=== PATIENT | female | born 1990 | race Caucasian/White ===

== ENCOUNTER 2018-01-09 08:19 | Inpatient (IN) | payer OTHER ==
[2018-01-09] MEDS ORDERED: Carboprost 250 MCG/ML AMP IM PRN (09:14)
[2018-01-09] MEDS ORDERED: Acetaminophen 500 MG TAB PO PRN (09:14)
[2018-01-09] MEDS ORDERED: Promethazine HCl 25 MG/ML VIAL IM PRN ×2 (09:14→13:00)
[2018-01-09] MEDS ORDERED: Misoprostol 200 MCG TAB PR PRN (09:14)
[2018-01-09] MEDS: Lactated Ringer's 1,000 ML IV SCH ×2 (09:14→12:28)
[2018-01-09] MEDS ORDERED: Meperidine HCl/PF 25 MG/ML VIAL IM/IV PRN (09:14)
[2018-01-09] MEDS ORDERED: LR / Pitocin 40 units/1000 ml 1,000 ML IV PRN (09:14)
[2018-01-09] MEDS ORDERED: Ondansetron HCl/PF 4 MG/2 ML Vial IVP PRN ×2 (09:14→13:00)
[2018-01-09] MEDS ORDERED: Methylergonovine 0.2 MG/ML VIAL IM PRN (09:14)
[2018-01-09] MEDS ORDERED: HYDROcodone/Acetaminophen 5/325 mg Tablet PO PRN (09:14)
[2018-01-09] MEDS ORDERED: Lidocaine 1% (PF) 30 ML VIAL SC PRN (09:14)
[2018-01-09] MEDS ORDERED: Ibuprofen 800 MG TAB PO PRN (09:14)
[2018-01-09] MEDS ORDERED: guaiFENesin/Dextromethorphan 10 ML UDCUP PO PRN (09:14)
[2018-01-09] MEDS ORDERED: LR 500 ML/Oxytocin 10 units 500 ML IV SCH (09:15)
[2018-01-09 09:54] VITALS: BMI 25.1
[2018-01-09 10:18] LABS: Hemoglobin 12.9 g/dL (12.0-16.0); Mean Corpuscular HGB CONC 34.3 g/dL (32.0-36.0); Mean Corpuscular Hemoglobin 31.7 pg (27.0-31.0); Mean Corpuscular Volume 92.4 fl (81.0-99.0); Mean Platelet Volume 7.3 fL (7.4-10.4); Platelet Count 143 thou/uL (130-400); RBC Distribution Width 12.3 % (11.5-14.5); Red Blood Cell (RBC) Count 4.08 mill/uL (4.20-5.40); White Blood Cell (WBC) Count 6.2 thou/uL (4.8-10.8)
[2018-01-09 10:54] LABS: Syphilis Antibody Nonreactive (Nonreactive); Syphilis Antibody Index 0.04 S/CO (<1.00 Non-Reactive)
[2018-01-09 10:55] LABS: HBSAg Index 0.15 S/CO (0-0.99); Hep B Surf Ag Non-Reactive S/CO (NonReactive)
[2018-01-09] MEDS ORDERED: Bupivacaine 0.5% 20 ML, Fentanyl 400 MCG in Sodium Chloride 0.9% 72 ML EPIDURAL SCH (12:00)
[2018-01-09] MEDS ORDERED: DISCONTINUE ALL PREVIOUS NARCOTICS FS SCH (12:00)
[2018-01-09] MEDS ORDERED: Communication Order-Pharmacy FS SCH (13:00)
[2018-01-09] MEDS ORDERED: Lactated Ringer's 500 ML IV PRN (13:00)
[2018-01-09] MEDS ORDERED: ePHEDrine/0.9% NaCl/PF SYRINGE 50 mg/10 ml SLOW IVP PRN (13:00)
[2018-01-09] MEDS ORDERED: diphenhydrAMINE 50 MG/ML VIAL IVP PRN (13:00)
[2018-01-09] MEDS ORDERED: Naloxone HCl 0.4 mg/ml Vial IVP PRN ×2 (13:00)
[2018-01-09] MEDS ORDERED: Eucerin (Mineral Oil/Petrolatum,White) 30 gm Jar TOP PRN (13:00)
[2018-01-09] MEDS ORDERED: Fentanyl 4mcg/Marcaine 0.1% Cassette 100 ML EPIDURAL SCH (13:00)
[2018-01-09] MEDS ORDERED: Acetaminophen 325 MG TAB PO PRN (13:00)
--- NOTE | 2018-01-09 14:22 | DN ---
DATE OF DELIVERY: 01/09/2018 PREOPERATIVE DIAGNOSIS: Term intrauterine . POSTOPERATIVE DIAGNOSES: Term intrauterine . PROCEDURE PERFORMED: Normal spontaneous vaginal delivery. SURGEON: Geri Pete M.D. ANESTHESIA: Epidural. ESTIMATED BLOOD LOSS: 250 mL. BRIEF DELIVERY SUMMARY: This is a 27-year-old G3, P1-0-1-1 at 41 and 4/7th weeks who presented for i nduction of labor secondary to post-dates . She began induction with Pitocin and underwent artificial rupture of membranes with clear fluid. She progressed quickly to complete and pushing. S he delivered a live male , head OA. Mouth and nares bulb suctioned at the perineum. There was no nuchal cord. Shoulders and body easily followed and the infant was placed on mother's abdomen. Infant's Apgars were 9 at 1 minute and 9 at 5 minutes. The umbilical cord was doubly clamped and cut and cord blood was collected and sent for analysis. Placenta delivered spontaneously and intact wit h a 3-vessel umbilical cord. Uterine fundus was firm following evacuation of the placenta. Total es timated blood loss was 250 mL. Cervix, vagina, and perineum were inspected for lacerations and there were none to be found. Mom and baby were left with the nurse in excellent condition attempting to b reast feed.
[2018-01-09] MEDS ORDERED: LR / Pitocin 40 units/1000 ml 1,000 ML IV SCH (17:24)
[2018-01-09] MEDS ORDERED: Lanolin Ointment 7 GM TUBE TOP PRN (17:24)
[2018-01-09] MEDS ORDERED: Benzocaine/Menthol 20-0.5% 60 ML CAN TOP PRN (17:24)
[2018-01-09] MEDS ORDERED: Bisacodyl 10 MG SUPP PR PRN (17:24)
[2018-01-09] MEDS ORDERED: Milk Of Magnesia 30 ML UDCUP PO PRN (17:24)
[2018-01-09] MEDS: Ferrous Sulfate 325 MG TAB PO SCH (18:22)
[2018-01-09] MEDS ORDERED: diphenhydrAMINE 25 MG CAP PO PRN (19:01)
[2018-01-09] MEDS: Guaifenesin DM 100-10/5 ML UDCUP PO PRN (20:40)
[2018-01-09] MEDS: Docusate Calcium (SURFAK) 240 MG CAP PO SCH (20:44)
[2018-01-09] MEDS: HYDROcodone/Acetaminophen 5/325 mg Tablet PO PRN (23:01)
[2018-01-10] MEDS: Ibuprofen 800 MG TAB PO PRN ×2 (04:33→14:26)
[2018-01-10] MEDS: Guaifenesin DM 100-10/5 ML UDCUP PO PRN ×4 (05:04→22:56)
[2018-01-10] MEDS: Ferrous Sulfate 325 MG TAB PO SCH ×2 (09:01→17:42)
[2018-01-10] MEDS: Docusate Calcium (SURFAK) 240 MG CAP PO SCH ×2 (09:02→21:29)
[2018-01-10] MEDS: Prenatal Vitamin 1 TAB PO SCH (09:02)
[2018-01-10] MEDS: HYDROcodone/Acetaminophen 5/325 mg Tablet PO PRN (13:04)
[2018-01-10] MEDS ORDERED: Bupivacaine/Epinephrine 0.25% 30 ML VIAL ONE (16:48)
[2018-01-11] MEDS: Guaifenesin DM 100-10/5 ML UDCUP PO PRN ×2 (04:08→09:58)
[2018-01-11 08:43] VITALS: BP 111/71; TEMP 98.5
[2018-01-11] MEDS: Ferrous Sulfate 325 MG TAB PO SCH (09:55)
[2018-01-11] MEDS: Prenatal Vitamin 1 TAB PO SCH (09:58)
[2018-01-11] MEDS: Docusate Calcium (SURFAK) 240 MG CAP PO SCH (09:58)
--- NOTE | 2018-01-11 10:55 | PDOC.PP ---
Post Progress Note Post Day #: 2 Subjective: No complaints, well, no pain, lochia normal PO intake tolerated: yes Flatus: yes Ambulation: yes Vital Signs (12 hours) Temp Pulse Resp BP 01/11/18 08:41 98.5 F 99 20 111/71 Weight Weight 146 lb 8 oz - Physical Examination General: NAD Cardiovascular: no m/r/g, RRR Respiratory: clear to auscultation bilaterally, non-labored breathing Abdominal: + bowel sounds, lochia, no distention, appropriately TTP Result Diagrams: 01/09/18 10:11 Additional Labs: Post Labs Hep Bs Antigen Non-Reactive S/CO (NonReactive) 01/09/18 10:11 (1) Vaginal delivery Code(s): O80 - ENCOUNTER FOR FULL-TERM UNCOMPLICATED DELIVERY Status: Acute - Assessment/Plan PPD #2 - doing well, no complications Routine PP care D/C home F/U in 6 weeks
== END 2018-01-11 15:20 | disposition home or self-care (01) | DRG 775 ==
LOC: L&D 08:19 → 3SW 17:18
PROVIDERS: ADMIT Family Medicine; ATTEND Family Medicine
PROC: 10E0XZZ Delivery of Products of Conception, External Approach (ICD-10-PCS; principal; 2018-01-09)
PROC: 3E033VJ Introduction of Other Hormone into Peripheral Vein, Percutaneous Approach (ICD-10-PCS; 2018-01-09)
PROC: 10907ZC Drainage of Amniotic Fluid, Therapeutic from Products of Conception, Via Natural or Artificial Opening (ICD-10-PCS; 2018-01-09)
DX: O48.0 Post-term pregnancy (principal); Z37.0 Single live birth; Z3A.41 41 weeks gestation of pregnancy
CPT/HCPCS: 51702; 85027; 86780; 87340; J2001; J3010; J3490; J7050; J7120

== ENCOUNTER 2018-01-14 16:55 | Emergency (ER) | payer OTHER ==
--- NOTE | 2018-01-14 18:08 | RAD ---
UPRIGHT CHEST TWO VIEWS ABDOMEN: History: Constipation. FINDINGS: Lungs are clear. Supine and upright views show scattered stool and gas throughout the colon. There is some scattered s mall bowel gas which appears nonspecific. No dilated small bowel. No evidence of small bowel obstruct ion. No mass or abnormal calcification identified. IMPRESSION: Nonspecific bowel gas pattern. POS: [facility]
== END 2018-01-14 17:59 | disposition home or self-care (01) ==
LOC: SCSER 16:55
DX: O99.63 Diseases of the digestive system complicating the puerperium (principal); K59.00 Constipation, unspecified; O99.345 Other mental disorders complicating the puerperium; F32.9 Major depressive disorder, single episode, unspecified
CPT/HCPCS: 74022